=== PATIENT | female | born 1985 | race Two or more races ===

== ENCOUNTER 2021-08-21 04:13 | Emergency (ER) | payer MEDICAID ==
[~2021-08-21] VITALS: Ht 157.5 cm; Wt 68.0 kg
[2021-08-21 04:29] VITALS: BP 152/91
[2021-08-21] MEDS ORDERED: OXYTOCIN 10 UNIT/ML ML ONE (04:42)
--- NOTE | 2021-08-21 04:50 | NUR ---
DR ESCOBAR ON PHONE WITH MERLE LEMUS
[2021-08-21] MEDS ORDERED: OXYTOCIN 10 UNIT/ML ML IM ONE (05:00)
[2021-08-21] MEDS ORDERED: CLIN300C12 PO (05:18)
== END 2021-08-21 05:33 | disposition home or self-care (01) ==
LOC: ER 04:21
DX: O03.9 Complete or unspecified spontaneous abortion without complication (principal); Z79.899 Other long term (current) drug therapy
CPT/HCPCS: 96372; 99283; A6403; J2590; 88305-TC; 88312-TC